=== PATIENT | female | born 1980 | race African-American/Black ===

== ENCOUNTER 2017-03-08 07:38 | Day surgery (SDC) | payer BC ==
[2017-03-07 13:38] LABS: BASOPHILS 0.5 %; BASOPHILS ABSOLUTE 0.04 10/3/uL (0.0-0.16); EOSINOPHILS 3.4 %; EOSINOPHILS ABSOLUTE 0.29 10/3/uL (0.0-0.53); HEMATOCRIT 40.2 % (36.0-48.0); HEMOGLOBIN 13.9 g/dL (12.0-16.0); IMMATURE GRANULOCYTES 0.1 %; IMMATURE GRANULOCYTES ABSOLUTE 0.01 10/3/uL (0.0-0.11); LYMPHOCYTES 27.3 %; LYMPHOCYTES ABSOLUTE 2.35 10/3/uL (0.67-4.30); MEAN CORPUS HGB CONC 34.6 g/dL (32.0-36.0); MEAN CORPUSCULAR HEMOGLOB 31.5 pg (26.0-34.0); MEAN CORPUSCULAR VOLUME 91.2 fL (80-100); MEAN PLATELET VOLUME 8.9 fL (9.2-13.0); MONOCYTES 6.8 %; MONOCYTES ABSOLUTE 0.59 10/3/uL (0.21-1.20); NEUTROPHILS 61.9 %; NEUTROPHILS ABSOLUTE 5.34 10/3/uL (2.02-8.40); RBC DISTRIBUTION WIDTH 13.6 % (12.0-16.0); RED CELL COUNT 4.41 10/6/uL (4.0-5.6); WHITE BLOOD CELLS 8.6 10/3/uL (4.5-10.5)
[2017-03-07 13:41] LABS: MANUAL DIFF NO %; PLATELET COUNT 774 10/3/uL (150-400)
--- NOTE | ~2017-03-08 | OP ---
Record Of Operation [facility] [address] [place]. [address] NAME: FRENCH CLOUD : 80 STATUS : [facility]#: [id number] AGE: 37 ADM/REG DATE : 03/08/17 MR#: [id number] REPORT SERV DATE: 03/08/17 DICTATED BY: JOSH CLEANING DATE: 03/08/17 REPORT STATUS : Draft TRANSCRIBED BY: MODL DATE: 03/08/17 DATE OF PROCEDURE: 03/08/2017 PREOPERATIVE DIAGNOSIS: Umbilical hernia. POSTOPERATIVE DIAGNOSIS: Umbilical hernia. PROCEDURE PERFORMED: Open umbilical hernia repair ESTIMATED BLOOD LOSS: Minimal. COMPLICATION: None. ANESTHESIA: General. SPECIMENS: None. 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 Cleaning. The patient was noted to have a very small defect, however, reported that this hernia had been bothering her, and she wished to have it fixed. Risks and benefits of the procedure including, but not limited to, recurrent bowel injury was explained to the patient. She voiced understanding and agreed to proceed with umbilical hernia repair. PROCEDURE IN DETAIL: The patient was brought to the operating room and laid on the table in supine position. Anesthesia was induced. A time-out was performed to ensure the correct patient and procedure. The patient was then sterilely prepped in the usual fashion. An area just inferior to the umbilicus was anesthetized using local. A curvilinear incision was made in the infraumbilical area. Electrocautery was used to deepen this incision down to the fascia. A hemostat was used to bluntly dissect around the stalk of the umbilicus. Once this was circumferentially dissected, hernia sac was divided from the stalk of the umbilicus using electrocautery. At this point, the defect was noted to be very small. Decision was made to close this in a primary transverse fashion without any mesh. Fascial defect was closed using simple interrupted 0 Nurolon sutures. The umbilicus was then tacked down to the fascia using 3-0 Vicryl interrupted sutures. The skin was also closed with 3-0 Vicryl interrupted suture. The patient tolerated the procedure well. Anesthesia was reversed and she was taken to PACU in stable condition. She will be allowed to be discharged home once she has fully recovered from anesthesia. She has been instructed not to do any strenuous activity including any ab workouts or heavy lifting for four to six weeks. She will follow up with Dr. Cleaning in two to three weeks. She was given a prescription for Percocet for her pain control. DICTATED BY: Lulú Zamora MD [facility] Record Of [address] [address] NAME: FRENCH CLOUD : 80 STATUS : [facility] PAT#: [id number] AGE: 37 ADM/REG DATE : 03/08/17 MR#: [id number] REPORT SERV DATE: 03/08/17 DICTATED BY: JOSH CLEANING DATE: 03/08/17 REPORT STATUS : Draft TRANSCRIBED BY: JENI DATE: 03/08/17 Josh Cleaning M.D. / [id number] CC: Josh Cleaning M.D.
[~2017-03-08 07:38] MED LIST: FOLIC PO; MTX2.5 PO
[2017-03-08 08:04] LABS: BASOPHILS 0.4 %; BASOPHILS ABSOLUTE 0.03 10/3/uL (0.0-0.16); EOSINOPHILS 4.2 %; EOSINOPHILS ABSOLUTE 0.32 10/3/uL (0.0-0.53); HEMOGLOBIN 14.2 g/dL (12.0-16.0); IMMATURE GRANULOCYTES 0.1 %; IMMATURE GRANULOCYTES ABSOLUTE 0.01 10/3/uL (0.0-0.11); LYMPHOCYTES 29.5 %; LYMPHOCYTES ABSOLUTE 2.23 10/3/uL (0.67-4.30); MANUAL DIFF NO %; MEAN CORPUS HGB CONC 34.6 g/dL (32.0-36.0); MEAN CORPUSCULAR HEMOGLOB 31.4 pg (26.0-34.0); MEAN CORPUSCULAR VOLUME 90.7 fL (80-100); MEAN PLATELET VOLUME 8.5 fL (9.2-13.0); MONOCYTES 5.4 %; MONOCYTES ABSOLUTE 0.41 10/3/uL (0.21-1.20); NEUTROPHILS 60.4 %; NEUTROPHILS ABSOLUTE 4.55 10/3/uL (2.02-8.40); PLATELET COUNT 705 10/3/uL (150-400); RBC DISTRIBUTION WIDTH 13.7 % (12.0-16.0); RED CELL COUNT 4.52 10/6/uL (4.0-5.6); WHITE BLOOD CELLS 7.6 10/3/uL (4.5-10.5)
== END 2017-03-08 14:12 | disposition home or self-care (01) ==
LOC: SDC 07:38
PROVIDERS: Specialist
PROC: 0WQF0ZZ Repair Abdominal Wall, Open Approach (ICD-10-PCS; principal; 2017-03-08 09:15)
DX: K42.9 Umbilical hernia without obstruction or gangrene (principal); M06.9 Rheumatoid arthritis, unspecified
CPT/HCPCS: 84703; 85025; 87641; A9270-GY; J0690; J2250; J2270; J2405; J3010